=== PATIENT | male | born 1975 | race Caucasian/White ===

== ENCOUNTER 2021-08-03 08:37 | Emergency (ER) | payer SELFPAY ==
[~2021-08-03] VITALS: Ht 190.5 cm; Wt 93.0 kg
[2021-08-03 19:20] VITALS: BP 115/78
== END 2021-08-03 19:27 | disposition home or self-care (01) ==
LOC: ER 08:37 → EDBD 08:37 → ER 19:03
DX: E86.0 Dehydration (principal)

== ENCOUNTER 2021-08-03 22:42 | Emergency (ER) | payer SELFPAY ==
[~2021-08-03] VITALS: Ht 2.5 cm; Wt 2.8 kg
[2021-08-03] MEDS ORDERED: diazePAM 5 MG TAB PO ONE (23:15)
[2021-08-04 01:21] LABS: Basophils # (auto) 0.1 10 ^3/uL (0-0.2); Basophils % (auto) 0.8 % (0.0-2.0); Eosinophils # (auto) 0.3 10 ^3/uL (0-0.8); Eosinophils % (auto) 3.3 % (0.0-7.0); Hematocrit 44.5 % (41.0-53.0); Lymphocytes # (auto) 2.3 10 ^3/uL (0.4-5.4); Lymphocytes % (auto) 23.2 % (10.0-50.0); Mean Corpuscular Hemoglobin 31.6 pg (28.0-32.0); Mean Corpuscular Hgb Conc. 33.7 g/dL (32.0-36.0); Mean Corpuscular Volume 93.7 fL (80.0-100.0); Monocytes # (auto) 0.8 10 ^3/uL (0-1.3); Monocytes % (auto) 8.2 % (0.0-12.0); Neutrophils # (auto) 6.5 10 ^3/uL (1.6-8.6); Neutrophils % (auto) 64.5 % (37.0-80.0); Nucleated Red Blood Cells % 0.1 %; Red Blood Cells 4.75 10^6/uL (4.5-5.90); Red Cell Distribution Width 15.3 % (11.8-14.3); White Blood Cell 10.1 10^3/uL (4.4-10.8)
[2021-08-04 01:41] LABS: Alanine Aminotransferase 28 U/L (16-61); Albumin 4.1 g/dL (3.4-5.0); Anion Gap 8 (5-15); Aspartate Aminotransferase 49 U/L (15-37); BUN/Creatinine Ratio 27.6; Blood Urea Nitrogen 35 mg/dL (7-18); Calcium 8.7 mg/dL (8.5-10.1); Carbon Dioxide 27 mmol/L (21-32); Chloride 103 mmol/L (98-107); GFR African American 79 mL/min; GFR Non-African American 65 mL/min; Glucose 110 mg/dL (74-106); Potassium 3.5 mmol/L (3.5-5.1); Salicylate < 1.7 mg/dL (2.8-20.0); Sodium 138 mmol/L (136-145)
[2021-08-04 01:45] LABS: Alkaline Phosphatase 83 U/L (45-117); Bilirubin, Total 1.8 mg/dL (0.2-1.0); Total Protein 8.4 g/dL (6.4-8.2)
[2021-08-04 01:49] LABS: Blood Alcohol < 3.0 mg/dL (0-5)
[2021-08-04 01:51] LABS: Acetaminophen < 2.0 ug/mL (10-30)
[2021-08-04 16:48] LABS: Alcohol, Urine < 3.0 mg/dL (0-10); Amphetamine Screen, Urine NEGATIVE (NEGATIVE); Barbiturate Scree,Urine NEGATIVE (NEGATIVE); Benzodiazephine Screen, Urine POSITIVE (NEGATIVE); Cannabinoid Screen, Urine NEGATIVE (NEGATIVE); Cocaine Screen, Urine POSITIVE (NEGATIVE); Opiate Scree,Urine NEGATIVE (NEGATIVE); Phencyclidine Screen, Urine NEGATIVE (NEGATIVE)
[2021-08-05] MEDS ORDERED: traZODone HCL 50 MG TAB PO PRN (05:00)
[2021-08-05] MEDS ORDERED: hydrOXYzine 25 MG TAB or CAP PO PRN (05:00)
[2021-08-05] MEDS: buPROPion HCL 100 MG TAB PO SCH (15:04)
[2021-08-06] MEDS: buPROPion HCL 100 MG TAB PO SCH (10:28)
[2021-08-07 08:00] VITALS: BP 126/79
== END 2021-08-07 10:06 | disposition home or self-care (01) ==
LOC: ER 22:42
DX: R45.851 Suicidal ideations (principal); F14.10 Cocaine abuse, uncomplicated; Z20.822 Contact with and (suspected) exposure to COVID-19
CPT/HCPCS: 36415; 71045; 80053; 80307; 80320; 80329; 84484; 85025; 93005